=== PATIENT | female | born 1950 | race Caucasian/White ===

== ENCOUNTER 2017-12-13 19:54 | Emergency (ER) | payer OTHER ==
[2017-12-14] MEDS: IBUPROFEN 600 MG TAB PO (00:50)
== END 2017-12-14 01:50 | disposition home or self-care (01) ==
LOC: E/R 19:54
DX: S83.92XA Sprain of unspecified site of left knee, initial encounter (principal); I10 Essential (primary) hypertension; E11.9 Type 2 diabetes mellitus without complications; W18.39XA Other fall on same level, initial encounter; Y92.9 Unspecified place or not applicable
CPT/HCPCS: 73562; 99283-25

== ENCOUNTER 2018-04-18 14:17 | Emergency (ER) | payer OTHER ==
[2018-04-18] MEDS: KETOROLAC 15 MG INJ IM (15:53)
== END 2018-04-18 16:57 | disposition home or self-care (01) ==
LOC: FTE 14:17
DX: M25.562 Pain in left knee (principal); I10 Essential (primary) hypertension; E11.9 Type 2 diabetes mellitus without complications
CPT/HCPCS: 73562; 96372; 99284-25

== ENCOUNTER 2018-05-09 18:45 | Emergency (ER) | payer OTHER ==
[2018-05-09] MEDS: NAPROXEN 500 MG TAB PO (20:46)
== END 2018-05-09 21:08 | disposition home or self-care (01) ==
LOC: FTE 18:45
DX: S00.83XA Contusion of other part of head, initial encounter (principal); I10 Essential (primary) hypertension; E11.9 Type 2 diabetes mellitus without complications; W01.0XXA Fall on same level from slipping, tripping and stumbling without subsequent striking against object, initial encounter; Y92.9 Unspecified place or not applicable
CPT/HCPCS: 99283; Z7502